=== PATIENT | female | born 1990 | race Caucasian/White ===

== ENCOUNTER 2018-05-21 13:33 | Emergency (ER) | payer SELFPAY ==
[~2018-05-21] VITALS: Wt 103.5 kg
[2018-05-21] MEDS ORDERED: METH750T93 PO (17:11)
[2018-05-21] MEDS ORDERED: TYL500 PO (17:11)
[2018-05-21] MEDS ORDERED: IBUP-1542 PO (17:11)
[2018-05-21 17:29] VITALS: BP 119/80; PULSE 79; RESP 17
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
== END 2018-05-21 17:29 | disposition home or self-care (01) ==
LOC: FTE 13:33
DX: M54.2 Cervicalgia (principal); R51 Headache; M79.602 Pain in left arm; M79.605 Pain in left leg; F17.210 Nicotine dependence, cigarettes, uncomplicated
CPT/HCPCS: 99283